=== PATIENT | female | born 1955 | race Hispanic/Latino ===

== ENCOUNTER 2021-01-12 06:08 | Emergency (ER) | payer BC ==
--- OUTSIDE RECORDS SUMMARY | 2021-01-12 06:12 | XMS REPORT | Continuity of Care Document ---
:1955 Author Organization [facility] Address [address] [place] [address] Care Team Providers Name Role Phone Unknown Attending Clinician Unavailable Payers Payer Name Policy Type Policy Number Effective Date Expiration Date S ource Problems This patient has no known problems. Allergies, Adverse Reactions, Alerts Allergy Allergy Status Severity Reaction(s) Onset Inactive Treating Comm ents Source Name Type Date Date Clinician NO KNOWN Drug Active Univers ALLERGIE Class ity of [facility] Social History Social Habit Start Date Stop Date Quantity Comments Source [facility] to SARS-CoV-2 Not sure [facility] Smoking Status Start Date Stop Date Source Unknown if ever smoked [facility] Medications This patient has no known medications. Procedures Procedure Date / Time Performed Performing Clinician Sourc e DEXA AXIAL (HIP AND 2019-11-13 19:26:02 Requisition, Paper [facility] SPINE) [facility] Branch BI SCREENING 2019-11-13 19:15:00 Requisition, Paper [facility] MAMMOGRAM BILATERAL Medical Bran ch Encounters Start End Encounter Admission Attending Care Care Encounter Source Date/Time Date/Time Type Type Clinicians Facility Department ID 2019-11-13 2019-11-13 Hospital Unknown, [facility] [id number] Univers 13:51:23 23:59:00 Encounter Attending Lukas [id number] ity katarina Ervin [id number] [facility] [id number] [place] [id number] Branch 2019-11-13 2019-11-13 Hospital Unknown, [facility] [id number] Univers 13:51:09 23:59:00 Encounter Attending Lukas [id number] ity of [place] [id number] [facility] [id number] [facility] 800 Branch 2019-11-13 2019-11-13 Outpatient R [facility] [id number] Univers 14:00:00 14:00:00 [id number] ity of [facility] 2019-11-13 2019-11-13 Outpatient R [facility] [id number] Univers 00:00:00 00:00:00 ity of [facility] Results Test Description Test Time Test Comments Results Result Sourc e Comments BI SCREENING 2019-10-28 Examination:BI Universi ty of MAMMOGRAM 7 SCREENING MAMMOGRAM [facility] 20:35:13 BILATERAL Branch History:Patient is 63 year old and is seen for: ?Breast cancer screening by mammogram. Computer-aided detection (CAD) utilized. Comparisons: 12/15/2015 DIGITAL MAMMOGRAM, SCREENING Findings:The breasts are almost entirely fatty. LeftThere is a focal asymmetry seen in the retroareolar region of the left breast in the anterior depth. Compared to the previous study, there are no significant changes. BilateralThere are vascular calcifications seen in both breasts. Impression:No signs of malignancy. Recommendation:Annua l mammographic follow-up - LeftAnnual mammographic follow-up - Right BI-RADS Category: Left 2 - BenignRight 1 - Negative DEXA AXIAL (HIP 2019-10-28 HISTORY: Universit y of AND SPINE) 7 Osteoporosis [facility] 19:29:24 screening study. Branch TECHNIQUE: Bone density estimation is done using DEXA scan, over the righthip and lumbar spines. FINDINGS: Details of the results are enclosed for your review. The summaryis as follows. RIGHT HIP:BMD value is 0.791 gm/sq cm, with T-score of -1.7. Estimated BMD in theneck is 0.722 g/sq cm with T score of -2.3. LUMBAR SPINES:Average BMD value from L1 through L4 is 0.957 gm/sq cm, with T-score - 1.9.Mild lumbar dextroscoliosis noted. CONCLUSION: Moderate to severe osteopenia in lumbar spines and in the right femur. ASSESSMENT: WHO-definitions: T-score normal: +/- 1 SD around the meanosteopenia: >1 to 2.4 SD below the meanosteoporosis: >2.5 SD below the meanFracture risk doubles for each 1.5 SD below the mean. [facility], Radiant Results Inft User - 11/13/2019 2:30 PM CDTHISTORY: Osteoporosis screening study.TECHNIQUE: Bone density estimation is done using DEXA scan, over the righthip and lumbar spines.FINDINGS: Details of the results are enclosed for your review. The summaryis as follows.RIGHT HIP:BMD value is 0.791 gm/sq cm, with T-score of -1.7. Estimated BMD in theneck is 0.722 g/sq cm with T score of -2.3.LUMBAR SPINES:Average BMD value from L1 through L4 is 0.957 gm/sq cm, with T-score - 1.9.Mild lumbar dextroscoliosis noted.CONCLUSION: Moderate to severe osteopenia in lumbar spines and in the right femur.ASSESSMENT: WHO-definitions: T-scorenormal: +/- 1 SD around the meanosteopenia: >1 to 2.4 SD below the meanosteoporosis: >2.5 SD below the meanFracture risk doubles for each 1.5 SD below the mean.
[2021-01-12] MEDS ORDERED: MORPHINE 4 MG/ML SYR ONE (06:27)
[2021-01-12] MEDS ORDERED: NA CHLORIDE 0.9% 1,000 ML ONE (06:27)
[2021-01-12] MEDS ORDERED: ONDANSETRON 4 MG/2 ML VIAL ONE (06:27)
[2021-01-12 06:55] LABS: Absolute Lymphocytes (CBC) 1.6 K/uL (0.7-4.9); Hematocrit 36.2 % (36.0-45.0); Lymphocytes % 28.3 % (15.3-44.8); MPV 8.6 fL (7.6-11.3); RBC Red Blood Cell Count 3.98 M/uL (3.86-4.86)
--- NOTE | 2021-01-12 07:14 | ER ---
Nurse's Notes [facility] Name: Hollie Del Toro Age: 65 yrs Sex: Female : 1955 Arrival Date: 01/12/2021 Time: 06:11 Bed 13 Private MD: Diagnosis: Zoster without complications Presentation: 01/12 06:26 Chief complaint: Patient states: LUQ abd pain, diarrhea, and rash to left groin/hip df1 area. Pt returned from [facility] 3 days prior. Coronavirus screen: Vaccine status: Patient reports receiving the 2nd dose of the covid vaccine. Client indicates they have traveled out of the [place] in the last 14 days. Client traveled to: [facility] At this time, the client does not indicate any symptoms associated with coronavirus-19. Ebola Screen: Patient negative for fever greater than or equal to 101.5 degrees Fahrenheit, and additional compatible Ebola Virus Disease symptoms Patient denies exposure to infectious person. Initial Sepsis Screen: Does the patient meet any 2 criteria? No. Patient's initial sepsis screen is negative. Does the patient have a suspected source of infection? No. Patient's initial sepsis screen is negative. Risk Assessment: Do you want to hurt yourself or someone else? Patient reports no desire to harm self or others. Onset of symptoms was January 10, 2021. 06:26 Method Of Arrival: Ambulatory df1 06:26 Acuity: [place] 3 df1 Triage Assessment: 06:29 General: Appears in no apparent distress. Behavior is calm, cooperative. Pain: df1 Complains of pain in left femoral area, left inguinal area and left iliac crest Pain radiates to left low back. GI: Reports diarrhea. Historical: - Allergies: : No Known Allergies; df1 - Home Meds: : lisinopril 20 mg Oral tab 1 tab once daily [Active]; Flagyl 500 mg Oral tab 1 tab every df1 12 hours [Active]; triamt/hctc 37.5-25 PO daily [Active]; - PMHx: : shigles; Hypertensive disorder; df1 - PSHx: :29 Appendectomy; Cholecystectomy; Total abdominal hysterectomy; bilateral inguinal hernia df1 repair; umbilicus hernia repair; - Immunization history:: Adult Immunizations not up to date, Client reports receiving the 2nd dose of the Covid vaccine, Pneumococcal vaccine is not up to date, Flu vaccine is not up to date. - Social history:: Smoking status: Patient denies any tobacco usage or history of. Screenin:34 Abuse screen: Denies threats or abuse. Nutritional screening: No deficits noted. df1 Tuberculosis screening: No symptoms or risk factors identified. Fall Risk None identified. Assessment: 06:49 Reassessment: Patient is alert, oriented x 3, equal unlabored respirations, skin kc4 warm/dry/pink. Pt states that she is not having abd pain and had not had diarrhea since coming home Sunday. He pain in localized in her groin area where a reddened blister rash is present. Pain: Complains of pain in groin Pain radiates to left leg Pain currently is 9 out of 10 on a pain scale. at worst was 10 out of 10 on a pain scale. level that patient reports is acceptable is 2 out of 10 on a pain scale. Quality of pain is described as burning, radiating, sharp, Pain began 2-3 days ago. Is continuous, Alleviated by medications, Aggravated by increased activity, Noted to be resistant to movement, Also complains of inability to perform activities of daily living. Neuro: Level of Consciousness is awake, alert, obeys commands, Oriented to person, place, time, situation, Fleet Manager are equal bilaterally Gait is steady. Cardiovascular: No deficits noted. Reports. Respiratory: No deficits noted. GI: No deficits noted. No signs and/or symptoms were reported involving the gastrointestinal system. Patient currently denies diarrhea. GI: Patient currently denies cramping. : No deficits noted. No signs and/or symptoms were reported regarding the genitourinary system. EENT: No deficits noted. No signs and/or symptoms were reported regarding the EENT system. Derm: Skin has blisters on reddened blister like rash in groin area Rash noted that is red, raised, vesicular, on left femoral area. Musculoskeletal: No deficits noted. No signs and/or symptoms reported regarding the musculoskeletal system. 07:03 Reassessment: received report from Rhea. Pt initially reports that she had been on a [place] trip outside of the country and returned with abdominal cramping and rash but has clarified that the abdominal pain has subsided since her return. abdominal scan has been canceled. Pt remains in the er for treatment of shingles. 08:17 Reassessment: pt discharging home with family member. diagnosis zoster with no kd3 complications. Vital Signs: 06:26 BP 181 / 82; Pulse 64; Resp 18; Temp 98.5(O); Pulse Ox 100% on R/A; Weight 59.87 kg; df1 Height 4 ft. 7 in. (139.70 cm); Pain 8/10; 08:17 BP 141 / 94; Pulse 81; Resp 16; Pulse Ox 100% on R/A; kd3 06:26 Body Mass Index 30.68 (59.87 kg, 139.70 cm) df1 ED Course: 06:11 Patient arrived in ED. bp1 06:12 Mary Ann Celeste FNP-C is PHCP. kb 06:12 Luis Fernando Caruso MD is Attending Physician. kb 06:25 Ivette Wilkerson is Primary Nurse. kc4 06:29 Triage completed. df1 06:29 Arm band placed on right wrist. df1 06:34 Patient has correct armband on for positive identification. Placed in gown. Bed in low df1 position. Call light in reach. Side rails up X 1. satellite project site monitor on. Pulse ox on. NIBP on. Warm blanket given. 06:34 No provider procedures requiring assistance completed. df1 06:40 Inserted saline lock: 20 gauge in left antecubital area, using aseptic technique. Blood kc4 collected. 06:48 Basic Metabolic Panel Sent. kc4 06:48 CBC with Diff Sent. kc4 08:17 IV discontinued. kd3 Administered Medications: 06:48 Drug: NS 0.9% 1000 ml Route: IV; Rate: 1000 ml; Site: left antecubital; kc4 08:22 Follow up: IV Status: Completed infusion; IV Intake: 1000ml kd3 06:48 Drug: morphine 4 mg Route: IVP; Site: left antecubital; kc4 08:22 Follow up: Response: No adverse reaction; Pain is decreased kd3 06:48 Drug: Zofran (Ondansetron) 4 mg Route: IVP; Site: left antecubital; kc4 08:22 Follow up: Response: No adverse reaction kd3 07:29 Drug: valACYclovir 1000 mg Route: PO; kd3 08:22 Follow up: Response: No adverse reaction kd3 Intake: 08:22 IV: 1000ml; Total: 1000ml. kd3 Outcome: 07:13 Discharge ordered by MD. merritt 08:20 Discharged to home ambulatory, with family. kd3 08:20 Condition: stable 08:20 Discharge instructions given to patient, Instructed on discharge instructions, follow up and referral plans. medication usage, Demonstrated understanding of instructions, follow-up care, medications, Prescriptions given X 2. 08:23 Patient left the ED. kd3 Signatures: Mary Ann Celeste, BANK SALES AND SERVICE MANAGER-C BANK SALES AND SERVICE MANAGER-Flower Kumar Kourtney kc4 Latrice Prabhakar df1 Tanya Ngo, RN RN kd3
--- NOTE | 2021-01-12 07:14 | EDPHYS ---
Physician Documentation [facility] Name: Hollie Del Toro Age: 65 yrs Sex: Female : 1955 Arrival Date: 01/12/2021 Time: 06:11 Bed 13 Private MD: ED Physician Luis Fernando Caruso HPI: 01/12 06:28 This 65 yrs old Female presents to ER via Unassigned with complaints of kb Abdominal Pain, Diarrhea. 06:28 The patient's rash thought to be caused by an unknown cause. The rash is located on the kb left femoral area. The rash can be described as vesicular. Onset: The symptoms/episode began/occurred yesterday. Associated signs and symptoms: Pertinent positives: Pain. Severity of symptoms: At their worst the symptoms were moderate in the emergency department the symptoms are unchanged. The patient has not experienced similar symptoms in the past. The patient has been recently seen by a physician:. Pt reports she drank some milk in [facility] and then flew home. States she has had diarrhea since then with left abd pain. Also reports left leg pain. Went to PCP yesterday and was given flagyl, today has a painful rash to groin. . Historical: - Allergies: 06:29 No Known Allergies; df1 - Home Meds: 06:29 lisinopril 20 mg Oral tab 1 tab once daily [Active]; Flagyl 500 mg Oral tab 1 tab every df1 12 hours [Active]; triamt/hctc 37.5-25 PO daily [Active]; - PMHx: 06:29 shigles; Hypertensive disorder; df1 - PSHx: 06:29 Appendectomy; Cholecystectomy; Total abdominal hysterectomy; bilateral inguinal hernia df1 repair; umbilicus hernia repair; - Immunization history:: Adult Immunizations not up to date, Client reports receiving the 2nd dose of the Covid vaccine, Pneumococcal vaccine is not up to date, Flu vaccine is not up to date. - Social history:: Smoking status: Patient denies any tobacco usage or history of. ROS: 06:26 Constitutional: Negative for fever, chills, and weight loss. kb 06:26 Abdomen/GI: Positive for abdominal pain, diarrhea, Negative for nausea and vomiting. 06:26 Skin: Positive for rash, of the left femoral area. 06:26 All other systems are negative. Exam: 06:27 Constitutional: This is a well developed, well nourished patient who is awake, alert, kb and in no acute distress. Head/Face: Normocephalic, atraumatic. ENT: Moist Mucous membranes Respiratory: Respirations even and unlabored. No increased work of breathing, no retractions or nasal flaring. Back: No spinal tenderness. No costovertebral tenderness. Full range of motion. MS/ Extremity: Pulses equal, no cyanosis. Neurovascular intact. Full, normal range of motion. Neuro: Awake and alert, GCS 15, oriented to person, place, time, and situation. Moves all extremities. Normal gait. Psych: Awake, alert, with orientation to person, place and time. Behavior, mood, and affect are within normal limits. 06:27 Abdomen/GI: Inspection: abdomen appears normal, Bowel sounds: normal, Palpation: soft, in all quadrants, mild abdominal tenderness, in the left upper quadrant and left lower quadrant. 06:27 Skin: rash a moderate rash is noted, consistent with zoster, on the left femoral area. Vital Signs: 06:26 BP 181 / 82; Pulse 64; Resp 18; Temp 98.5(O); Pulse Ox 100% on R/A; Weight 59.87 kg; df1 Height 4 ft. 7 in. (139.70 cm); Pain 8/10; 08:17 BP 141 / 94; Pulse 81; Resp 16; Pulse Ox 100% on R/A; kd3 06:26 Body Mass Index 30.68 (59.87 kg, 139.70 cm) df1 MDM: 06:13 Patient medically screened. kb 06:26 Data reviewed: vital signs, nurses notes. Data interpreted: Pulse oximetry: on room air kb is 100 %. Interpretation: normal. 06:31 ED course: CHILDREN'S LIBRARIAN aware reviewed, no prescriptions found. kb 06:46 ED course: Pt now reports the diarrhea had resolved shortly after it started a few days kb ago. States she doesn't have abd pain, only pain in groin where rash is. 07:13 Counseling: I had a detailed discussion with the patient and/or guardian regarding: the kb historical points, exam findings, and any diagnostic results supporting the discharge/admit diagnosis, lab results, the need for outpatient follow up, a family practitioner, to return to the emergency department if symptoms worsen or persist or if there are any questions or concerns that arise at home. 01/12 06:21 Order name: Basic Metabolic Panel; Complete Time: 07:12 kb 01/12 06:21 Order name: CBC with Diff; Complete Time: 07:12 kb 01/12 06:21 Order name: IV Saline Lock; Complete Time: 06:48 kb 01/12 06:21 Order name: Labs collected and sent; Complete Time: 06:48 kb Administered Medications: 06:48 Drug: NS 0.9% 1000 ml Route: IV; Rate: 1000 ml; Site: left antecubital; kc4 08:22 Follow up: IV Status: Completed infusion; IV Intake: 1000ml kd3 06:48 Drug: morphine 4 mg Route: IVP; Site: left antecubital; kc4 08:22 Follow up: Response: No adverse reaction; Pain is decreased kd3 06:48 Drug: Zofran (Ondansetron) 4 mg Route: IVP; Site: left antecubital; kc4 08:22 Follow up: Response: No adverse reaction kd3 07:29 Drug: valACYclovir 1000 mg Route: PO; kd3 08:22 Follow up: Response: No adverse reaction kd3 Disposition: 01/13 07:18 Co-signature as Attending Physician, Luis Fernando Caruso MD I agree with the assessment and ericka plan of care. Disposition Summary: 01/12/21 07:13 Discharge Ordered Location: Home kb Condition: Stable kb Diagnosis - Zoster without complications kb Followup: kb - With: Emergency Department - When: As needed - Reason: Worsening of condition Followup: kb - With: Private Physician - When: 2 - 3 days - Reason: Recheck today's complaints, Continuance of care, Re-evaluation by your physician Discharge Instructions: - Discharge Summary Sheet kb - Shingles, [id number] kb Forms: - Medication Reconciliation Form kb - Thank You Letter kb - Antibiotic Education kb - Prescription Opioid Use kb Prescriptions: - Valtrex 1 gram Oral tablet - take 1 tablet by ORAL route every 8 hours for 7 days; 21 tablet; Refills: 0, kb Product Selection Permitted - Tramadol 50 mg Oral Tablet - take 1 tablet by ORAL route every 8 hours as needed; 12 tablet; Refills: 0, kb Product Selection Permitted Signatures: Dispatcher [employer] Mary Ann Holley FNP-C FNP-Ckb Luis Fernando Caruso MD MD cha Chuman, Kourtney kc4 Latrice Prabhakar df1 Tanya Ngo, RN RN kd3 Corrections: (The following items were deleted from the chart) 01/12 06:42 06:21 Abdomen Pelvis W Con+CT.RAD.BRZ ordered. EDMS EDMS
[2021-01-12] MEDS ORDERED: VALACYCLOVIR 500 MG TAB ONE (07:25)
[2021-01-12 08:30] VITALS: TEMP 98.5; O2SAT 100
[2021-01-12 08:32] VITALS: BP 141/94
== END 2021-01-12 08:23 | disposition home or self-care (01) ==
LOC: ER 06:08
DX: B02.9 Zoster without complications (principal); I10 Essential (primary) hypertension
CPT/HCPCS: 96361; 85025; 80048; 36415; 96375; 96374; 99284; J7030; J2405